=== PATIENT | female | born 1980 | race Caucasian/White ===

== ENCOUNTER → 2017-04-25 | Outpatient (CLI) | payer OTHER ==
--- NOTE | 2017-04-25 16:24 | KCIC ---
EXAM: Bilateral diagnostic mammogram; bilateral breast sonogram. HISTORY: 37-year-old female presents with a palpable right breast lump. TECHNIQUE: Full-field digital craniocaudal and mediolateral oblique views of both breasts are obtained for evaluation. Computer aided detection with fitaborateD software version 9.3 was applied. Sonographic imaging of both breasts targeted to the site of palpable concern within the right breast and subareolar left breast was performed. COMPARISON: None. This is baseline mammogram and sonogram. BREAST PARENCHYMAL DENSITY: Level D - Extremely dense. FINDINGS: There is focal asymmetry within the upper outer quadrant of the right breast at the site of palpable concern. There is a circumscribed nodule within the 1:00 subareolar aspect of the left breast. There is no suspicious calcification or architectural distortion. Sonographic imaging of the right breast demonstrates a somewhat masslike region of heterogeneous echogenicity at the 10:00 position 7.5 cm from the nipple at the site of palpable concern. This demonstrates indistinct margins and measures approximately 2.2 cm in maximum dimension. There are benign-appearing right axillary lymph nodes. Sonographic imaging of the left breast demonstrates a well-circumscribed hypoechoic nodule at the 1:00 subareolar location measuring 1.5 cm. This demonstrates slight posterior through transmission and no architectural distortion. This corresponds to the mammographic nodule of concern. There is a 5 mm complex cyst with adjacent dense fibrocystic tissue within the 4:00 position of the left breast. IMPRESSION: 1. 2.2 cm somewhat masslike region of heterogeneous echogenicity and mammographic asymmetry within the 10:00 position of the right breast at the site of palpable concern. This is slightly more conspicuous than expected for an island of dense fibroglandular tissue. Sonographic guided biopsy is recommended for definitive diagnosis. 2. 1.5 cm benign-appearing nodule within the 1:00 subareolar aspect of the left breast, the appearance of which favors a fibroadenoma. Six-month sonographic follow-up can be performed to confirm stability. 3. BI-RADS Category 4: Suspicious abnormality. Sonographic guided biopsy of the right breast is recommended, as noted above. These findings and recommendations were discussed with the patient and will be communicated to the referring physician office. If your mammogram demonstrates that you have dense breast tissue, which could hide abnormalities, and if you have other risk factors for breast cancer that have been identified, you might benefit from supplemental screening tests that may be suggested by your ordering physician. Dense breast tissue, in and of itself, is a relatively common condition. This information is not provided to cause undue concern, but rather to raise your awareness and to promote discussion with your physician regarding the presence of other risk factors, in addition to dense breast tissue. A report of your mammography results will be sent to you and your physician. You should contact your physician if you have any questions or concerns regarding this report. Mammography is a sensitive method for finding small breast cancers, but it does not detect them all and is not a substitute for careful clinical examination. A negative mammogram does not negate a clinically suspicious finding and should not result in delay in biopsying a clinically suspicious abnormality. PQRS compliance statement - Patient information was entered into a reminder system with a target due date for the next mammogram. "Our facility is accredited by the [employer] Mammography [employer]." Electronically signed by: Hanna Rachel MD (04/25/2017 4:21 PM) [facility] [id number]
== END | disposition home or self-care (01) ==
LOC: KCIC US 13:56
PROVIDERS: ATTEND Nurse Practitioner Family
DX: N63 Unspecified lump in breast (principal)
CPT/HCPCS: 76641; G0204; 77066

== ENCOUNTER → 2017-06-18 | Outpatient (CLI) | payer OTHER ==
[~2017-06-18] VITALS: Ht 170.2 cm; Wt 63.5 kg
[~2017-06-18] MED LIST: HYDR25TA9 PO; METO50TA2 PO; TRAM50TA PO; adderall PO
[2017-06-18 08:34] VITALS: BP 121/74
== END | disposition home or self-care (01) ==
LOC: US 08:13
PROVIDERS: ATTEND Surgery
DX: N63 Unspecified lump in breast (principal)
CPT/HCPCS: 76942